=== PATIENT | male | born 1965 | race American Indian/Alaskan Native ===

== ENCOUNTER 2018-04-18 11:02 | Emergency (ER) | payer MEDICAID ==
[2018-04-18 11:21] VITALS: TEMP 98.3
[2018-04-18] MEDS ORDERED: Albuterol-Ipratrop 3 mg / 0.5 (3 ml) UD INH STA ×2 (11:38→12:21)
--- NOTE | 2018-04-18 11:38 | C.PDOC ---
History Of Present Illness 53 y/o male with hx asthma, +intubations, also dvt and pe, on xarelto, c/o difficulty breathing today. pt sts he was sorting clothes in a [facility] hot room and asthma worsened. pt ran out of albuterol mdi yesterday. also takes sprivia and advair. pt finished steroid taper on . pt given 2 nebs and solumedrol by ems and feels better than before. Time Seen by Provider: 04/18/18 11:26 Chief Complaint (Nursing): Shortness Of Breath History Per: Patient History/Exam Limitations: no limitations Onset/Duration Of Symptoms: Days Current Symptoms Are (Timing): Still Present Past Medical History Reviewed: Historical Data, Nursing Documentation, Vital Signs Vital Signs: Last Vital Signs Temp 98.3 F 04/18/18 11:20 Pulse 79 04/18/18 13:47 Resp 18 04/18/18 13:47 BP 122/78 04/18/18 13:47 Pulse Ox 98 04/18/18 19:08 - Medical History PMH: Asthma, COPD, Deep Vein Thrombosis, HTN, Hypercholesterolemia Surgical History: No Surg Hx Family History: States: No Known Family Hx - Social History Hx Alcohol Use: No Hx Substance Use: No Review Of Systems Constitutional: Negative for: Fever, Chills Cardiovascular: Negative for: Chest Pain, Palpitations Respiratory: Positive for: Shortness of Breath. Negative for: Cough Gastrointestinal: Negative for: Nausea, Vomiting Skin: Negative for: Rash Physical Exam - Physical Exam Appears: Non-toxic, No Acute Distress, Other (Speaking in full sentences) Skin: Warm, Dry, No Rash Head: Atraumatic, Normacephalic Eye(s): bilateral: Normal Inspection Oral Mucosa: Moist Neck: Normal ROM, Supple Cardiovascular: Rhythm Regular Respiratory: No Rales, No Rhonchi, Wheezing (bilateral), Other (speaks in full sentences) Gastrointestinal/Abdominal: Soft, No Tenderness, No Guarding, No Rebound Extremity: No Pedal Edema, Capillary Refill (<2 seconds) Neurological/Psych: Oriented x3, Normal Speech, Normal Cognition ED Course And Treatment O2 Sat by Pulse Oximetry: 98 (RA) Pulse Ox Interpretation: Normal Medical Decision Making Medical Decision Making: Progress: Patient requesting to go to [place], asked to stay in bed and was found wondering around ED. Patient is now seating in bed eating a sandwich and still has some wheezing. Neb treatment ordered 1332 pt still wheezing, alhough says he feels better. pt refuses admission, wants to leave. pt will leave ama. requesting inhaler, antibiotics and steroids. cxr neg for infiltrate. will not given antiblitics. pt received solumedrol in ed. will get rx for prednosone. Disposition Counseled Patient/Family Regarding: Studies Performed, Diagnosis, Need For Followup, Rx Given, Smoking Cessation - Disposition Referrals: [facility] at [facility] [Outside] Disposition: AGAINST MEDICAL ADVICE Disposition Time: 13:35 Condition: STABLE Prescriptions: Albuterol HFA [Ventolin HFA 90 mcg/actuation (8 g)] 2 puff IH Q6 #1 inhaler Prednisone [Deltasone] 20 mg PO BID #10 tablet Instructions: Asthma, Adult (DC), Avoiding Asthma Triggers, Peak Flow Meter Forms: [facility] [employer] (Upper Sorbian), General Discharge Instructions - Clinical Impression Clinical Impression: Asthma exacerbation - PA / PHOTOTYPESETTING EQUIPMENT MONITOR / Resident Statement MD/DO has reviewed & agrees with the documentation as recorded. - Scribe Statement The provider has reviewed the documentation as recorded by the Pawelibirvin Harrell All medical record entries made by the Omar were at my direction and personally dictated by me. I have reviewed the chart and agree that the record accurately reflects my personal performance of the history, physical exam, medical decision making, and the department course for this patient. I have also personally directed, reviewed, and agree with the discharge instructions and disposition.
[2018-04-18] MEDS ORDERED: Albuterol-Ipratrop 3 mg / 0.5 (3 ml) UD ONE ×2 (11:46→12:36)
--- NOTE | 2018-04-18 12:11 | RAD ---
HISTORY: cough and asthma COMPARISON: No prior. TECHNIQUE: Chest PA and lateral FINDINGS: LUNGS: No active pulmonary disease. PLEURA: No significant pleural effusion identified. No pneumothorax apparent. CARDIOVASCULAR: Normal. OSSEOUS STRUCTURES: Subacute versus old posterior left 9th rib fracture. Degenerative changes. VISUALIZED UPPER ABDOMEN: Normal. OTHER FINDINGS: None. IMPRESSION: Subacute versus old posterior left 9th rib fracture. No focal consolidation, pleural effusion or appreciable pneumothorax.
[2018-04-18 13:48] VITALS: BP 122/78; PULSE 79; RESP 18
[2018-04-18 19:08] VITALS: O2SAT 98
--- NOTE | 2018-04-21 21:58 | CARD ---
APPROVED REPORT EKG Measurement Heart [id number] <Conclusion> Normal sinus rhythm with sinus arrhythmia Normal ECG
== END 2018-04-18 13:47 | disposition left against medical advice (07) ==
LOC: C.ER 11:02
DX: J45.901 Unspecified asthma with (acute) exacerbation (principal); I10 Essential (primary) hypertension; E78.00 Pure hypercholesterolemia, unspecified; Z86.718 Personal history of other venous thrombosis and embolism; F17.210 Nicotine dependence, cigarettes, uncomplicated

== ENCOUNTER 2018-09-06 04:12 | Inpatient (IN) | payer MEDICAID ==
--- NOTE | 2018-09-06 04:16 | C.PDOC ---
History Of Present Illness 53 y/o male with PMHX of asthma and COPD presents to the ED via ambulance complaining of SOB for the past 3 days. Patient arrives AAOx3, speaking in 1-2 word phrases. As per EMS, patient received 1 duoneb, solu-medrol 125 mg, and 2 g m mag in the field, and CPAP was initiated. Patient reports current SOB feels similar to previous asthma/COPD exacerbation episodes. Patient has a history of prior intubations and hospitalizations for asthma. PMHx is also significant for DVT, for which he currently takes Xarelto. Patient reports taking his nebulizer treatments at home without relief, prompting him to come in this morning. Otherwise he denies any fevers, chills, night sweats, headache, dizziness, chest pain, or leg swelling/pain. Time Seen by Provider: 09/06/18 04:15 Chief Complaint (Nursing): Respiratory Distress History Per: Patient History/Exam Limitations: clinical condition (in respiratory distress) Onset/Duration Of Symptoms: Days (x3) Current Symptoms Are (Timing): Worse Associated Symptoms: Dyspnea Past Medical History Reviewed: Historical Data, Nursing Documentation, Vital Signs - Medical History PMH: Asthma, COPD, Deep Vein Thrombosis, HTN, Hypercholesterolemia Other Surgeries: Foot surgery Family History: States: No Known Family Hx - Social History Hx Tobacco Use: Yes Hx Alcohol Use: No Hx Substance Use: No Review Of Systems Constitutional: Negative for: Fever, Chills, Sweats Eyes: Negative for: Vision Change Cardiovascular: Negative for: Chest Pain Respiratory: Positive for: Cough, Shortness of Breath, Wheezing Gastrointestinal: Negative for: Nausea, Vomiting, Diarrhea, Melena, Hematochezia Neurological: Negative for: Weakness, Numbness, Headache, Dizziness Physical Exam - Physical Exam Appears: In Acute Distress (In acute respiratory distress), Other (Speaking in 1-2 word sentences) Skin: Warm, Dry Head: Normacephalic Eye(s): bilateral: PERRL, EOMI Oral Mucosa: Moist Neck: Trachea Midline, Supple, Other (No meningeal signs- negative kernig's and brudzinskis) Chest: Symmetrical Respiratory: Accessory Muscle Use, Wheezing (through all lung tony), Other (+ moderate respiratory distress) Gastrointestinal/Abdominal: Soft, No Tenderness, No Guarding, Other (Protuber ant, obese abdomen) Extremity: Bilateral: Normal Color And Temperature, Normal ROM Pulses: Left Dorsalis Pedis: Normal, Right Dorsalis Pedis: Normal Neurological/Psych: Oriented x3 ED Course And Treatment - Laboratory Results Result Diagrams: 09/06/18 04:41 09/06/18 04:41 O2 Sat by Pulse Oximetry: 97 (on BIPAP) Pulse Ox Interpretation: Normal Medical Decision Making Medical Decision Makin53 y/o M with pmhx of asthma, COPD, DVT (on xarelto), BIBA for SOB for 3 days. Pt arrives in respiratory distress, speaking in 1-2 word phrases. +Wheezing throughout all lung tony. Respiratory therapists at bedside. Initial Plan: ABG EKG CMP Pro-BNP CBC Chest x-ray Duoneb nebulizer x3 BIPAP EK, sinus rhythm, PVCs, no STEMI pc02 65, on bipap Pt in NAD on bipap, improved from previous Ginning Operator on-call, Dr. Bowen, notified of patient, accepted to ICU. 0518 appreciate consult w/ Dr. Clair melton: to admit to his service xray reviewed: largely unremarkable wheezing improved PT improved on BIPAP, Now speaking in more complete sentences, agreeable to plan CBC unremarkable Disposition - Disposition Disposition Time: 05:19 Condition: GOOD Forms: [facility] (Kyrgyz) - Clinical Impression Clinical Impression: Exacerbation of asthma - Scribe Statement The provider has reviewed the documentation as recorded by the Scribe (Flor Saha) Provider Attestation: All medical record entries made by the Scribe were at my direction and per sonally dictated by me. I have reviewed the chart and agree that the record accurately reflects my personal performance of the history, physical exam, medical decision making, and the department course for this patient. I have also personally directed, reviewed, and agree with the discharge instructions and disposition.
[2018-09-06] MEDS ORDERED: Albuterol-Ipratrop 3 mg / 0.5 (3 ml) UD ONE ×2 (04:20→04:25)
[2018-09-06] MEDS ORDERED: Albuterol-Ipratrop 3 mg / 0.5 (3 ml) UD INH PRN ×2 (04:32→05:54)
[2018-09-06 04:38] LABS: ABG ALLEN TEST POS; ARTERIAL BLOOD GAS HCO3 25.3 mmol/L (21-28); ARTERIAL BLOOD GAS O2 SAT 100.1 % (95-98); ARTERIAL BLOOD GAS PCO2 67 mm/Hg (35-45); ARTERIAL BLOOD GAS PH 7.25 (7.35-7.45); ARTERIAL BLOOD GAS PO2 526 mm/Hg (80-100); ARTERIAL BLOOD GAS TCO2 31.5 mmol/L (22-28)
[2018-09-06 04:55] LABS: BASO % 0.4 % (0.0-2.0); EOS # 0.3 K/uL (0.0-0.7); EOS % 2.4 % (0.0-4.0); HEMOGLOBIN 15.5 g/dL (12.0-18.0); LYMPH # 2.5 K/uL (1.0-4.3); MEAN CELL VOLUME 87.1 fL (80.0-94.0); MEAN CORPUSCULAR HEMOGLOBIN 29.1 pg (27.0-31.0); MEAN CORPUSCULAR HGB CONC 33.4 g/dL (33.0-37.0); MEAN PLATELET VOLUME 8.8 fL (7.2-11.7); MONO % 8.8 % (0.0-10.0); NEUT # 7.1 K/uL (1.8-7.0); NEUT % 65.4 % (50.0-75.0); NRBC % 0.1 % (0.0-2.0); RBC 5.32 Mil/uL (4.40-5.90); RED CELL DISTRIBUTION WIDTH 14.1 % (11.5-14.5); WHITE BLOOD COUNT 10.8 K/uL (4.8-10.8)
[2018-09-06 05:11] LABS: BLOOD UREA NITROGEN 13 mg/dL (9-20); GFR NON-AFRICAN AMERICAN > 60
[2018-09-06 05:24] LABS: ALB/GLOB RATIO 1.3 (1.0-2.1); ALBUMIN 4.4 g/dL (3.5-5.0); ALT/SGPT 26 U/L (21-72); AST/SGOT 57 U/L (17-59)
[2018-09-06] MEDS ORDERED: Albuterol 0.042% Inhal Sol (1.25 mg/3 mL) UD INH PRN (05:53)
[2018-09-06] MEDS ORDERED: MethylPREDNISolone 40 mg Vial IV SCH (06:00)
[2018-09-06] MEDS: Pantoprazole 40 mg Susp UD PO SCH (06:29)
--- NOTE | 2018-09-06 07:55 | CP.PCM.CON ---
History of Present Illness - History of Present Illness History of Present Illness: 53 M with h/o asthma, smoking, htn, hld, h/o dvt unprovoked b/l in 2007 on xeralto, came to ER for sob gradually worsening last 3 days, patient waking up from sleep often using nebulizer. Last night got worse couldn't breath felt he would . I ER and by EMT he received solumedrol oral predniesone, magnesium, nebs, and started on bipap then started to improve. On bipap still resp acidotic, but attack started to break and now able to talk in sentences. Denies work of home trigers being active, denies over acid reflux PMH as above PSH none Allergies PCN throat swells Meds reviewed Family history sibling have asthma, aunt and uncle from asthma Social recently shifted form [place], works as security personel, smokes 3 cig/day still, denies alcohol, illicit drugs Review of Systems - Review of Systems All systems: reviewed and no additional remarkable complaints except (HPI) Past Patient History - Past Social History Smoking Status: Light Smoker < 10 Cigarettes Daily Alcohol: None Home Situation {Lives}: With Family Domestic Violence: Negative - CARDIAC Hx Hypercholesterolemia: Yes Hx Hypertension: Yes - PULMONARY Hx Asthma: Yes Hx Chronic Obstructive Pulmonary Disease (COPD): Yes - PSYCHIATRIC Hx Substance Use: No - SURGICAL HISTORY Hx Surgeries: Yes Other/Comment: AKBAR FOOT - ANESTHESIA Hx Anesthesia: Yes Hx Anesthesia Reactions: No Meds Allergies/Adverse Reactions: Allergies Allergy/AdvReac Type Severity Reaction Status Date / Time mushroom Allergy Severe RASH Verified 09/06/18 04:31 Penicillins Allergy Severe SWELLING Verified 09/06/18 04:31 - Medications Medications: Current Medications Albuterol Sulfate (Albuterol 0.042% Inhal Janeth (1.25mg/3ml) Ud) 1.25 mg INH RQ2 PRN PRN Reason: Wheezing Albuterol/Ipratropium (Duoneb 3 Mg/0.5 Mg (3 Ml) Ud) 3 ml INH RQ6 PRN PRN Reason: Shortness of Breath Budesonide (Pulmicort Respules) 0.5 mg INH RQ12 OSMIN Doxycycline Hyclate (Doryx) 100 mg PO Q12H OSMIN; Protocol Lisinopril (Zestril) 10 mg PO DAILY OSMIN Methylprednisolone (Solu-Medrol) 40 mg IV Q8 [facility] Last Admin: 09/06/18 06:29 Dose: 40 mg Pantoprazole Sodium (Protonix Susp) 40 mg PO 0600 [facility] Last Admin: 09/06/18 06:29 Dose: 40 mg Rivaroxaban (Xarelto) 20 mg PO DAILY [facility] Rosuvastatin Calcium (Crestor) 5 mg PO DIN [facility] Trazodone HCl (Desyrel) 50 mg PO [facility] Physical Exam - Additional Findings Additional findings: * HEENT GUY * Neck supple * CVS regular, HR around 100/min * Chest diffuse, b/l prolonged exp wheezing * Abd soft, but use of abdominal muscles noticed * Ext 1+ b/l edema * SPECIMEN COLLECTOR awake oriented x3 no fnd * Skin normal turgor. Results - Vital Signs Recent Vital Signs: Last Vital Signs Temp 98.1 F 09/06/18 06:17 Pulse 93 H 09/06/18 06:35 Resp 16 09/06/18 06:17 BP 127/70 09/06/18 06:17 Pulse Ox 99 09/06/18 06:17 - Labs Result Diagrams: 09/06/18 04:41 09/06/18 04:41 Labs: Laboratory Results - last 24 hr 09/06/18 09/06/18 09/06/18 04:34 04:41 04:41 WBC 10.8 RBC 5.32 Hgb 15.5 Hct 46.3 MCV 87.1 MCH 29.1 MCHC 33.4 RDW 14.1 Plt Count 269 MPV 8.8 Neut % (Auto) 65.4 Lymph % (Auto) 23.0 King % (Auto) 8.8 Eos % (Auto) 2.4 Baso % (Auto) 0.4 Neut # (Auto) 7.1 H Lymph # (Auto) 2.5 King # (Auto) 1.0 H Eos # (Auto) 0.3 Baso # (Auto) 0.0 Puncture Site Lr pCO2 67 H pO2 526 H HCO3 25.3 ABG pH 7.25 L ABG Total CO2 31.5 H ABG O2 Saturation 100.1 H ABG Base Excess 0.4 Rashad Test Pos ABG Potassium 4.0 A-a O2 Difference 103.0 Respiratory Index 0.2 Sodium 141.0 142 Chloride 111.0 H 106 Glucose 137 H Lactate 0.7 Vent Mode Bipap FiO2 100.0 Inspiratory BiPAP 10 Expiratory BiPAP 5 Potassium 5.1 Carbon Dioxide 24 Anion Gap 17 BUN 13 Creatinine 0.9 Est GFR ( Amer) > 60 Est GFR (Non-Af Amer) > 60 Random Glucose 130 H Calcium 9.0 Total Bilirubin 1.0 AST 57 ALT 26 Alkaline Phosphatase 65 NT-Pro-B Natriuret Pep 46.0 Total Protein 7.9 Albumin 4.4 Globulin 3.5 Albumin/Globulin Ratio 1.3 Arterial Blood Potassium 4.0 Assessment & Plan - Assessment and Plan (Free Text) Assessment: * Status asthmaticus, resp adcidosis, improving * Tobacco abuse counselled * H/o HTN, HDL, * H/o DVT on xeralto * Plan: * Bipap, systemic steroid, doxycycline, nebs, inhaled steroid, watch in ICU till resp acidosis improves. * Home meds * Continue xeralto * Recommend PPI upon discharge for at least 6wk to see acid reflux as triger * Counselled about tobacco cessation. * See orders for detail.
[2018-09-06] MEDS ORDERED: Magnesium Sulfate 1 gm in D5W 1 GM/100 ML BAG IVPB ONE ×2 (08:21→10:04)
[2018-09-06] MEDS: Budesonide 0.5 mg/2 ml Inhal Susp UD INH SCH ×2 (08:30→20:15)
--- NOTE | 2018-09-06 09:35 | RAD ---
Date of service: 09/06/2018 HISTORY: sob COMPARISON: Comparison made with chest radiograph 04/18/2018 FINDINGS: LUNGS: Minor bibasilar atelectasis PLEURA: No significant pleural effusion identified, no pneumothorax apparent. CARDIOVASCULAR: No aortic atherosclerotic calcification present. Normal cardiac size. No pulmonary vascular congestion. OSSEOUS STRUCTURES: Suspect old healed fracture deformity left posterior 9th rib. Degenerative changes both shoulder girdles. VISUALIZED UPPER ABDOMEN: Normal. OTHER FINDINGS: None. IMPRESSION: Minor bibasilar atelectasis
--- NOTE | 2018-09-06 13:18 | CP.CCUPN ---
<Tc Kaufman - Last Filed: 09/06/18 14:04> CCU Subjective - Physician Review Subjective (Free Text): 09/06/18 13:16 PGY-1 Critical Care Progress Note for Dr. Steen Patient seen and examined at bedside this AM. No acute overnight events reported. Status asthmaticus, resp acidosis, clinically improving. 12 pt ROS otherwise unchanged. Critical Care Time Spent (in minutes): 35 CCU Objective - Vital Signs / Intake & Output Vital Signs (Last 4 hours): Vital Signs Pulse 09/06/18 11:25 84 Intake and Output (Last 8hrs): Intake & Output 09/05/18 09/06/18 09/06/18 22:59 06:59 14:59 Weight 258 lb - Physical Exam Head: Positive for: Atraumatic, Normocephalic Pupils: Positive for: PERRL Extroacular Muscles: Positive for: EOMI Conjunctiva: Positive for: Normal Mouth: Positive for: Moist Mucous Membranes Neck: Positive for: Normal Range of Motion Respiratory/Chest: Positive for: Good Air Exchange, Wheezes. Negative for: Respiratory Distress, Accessory Muscle Use, Rales, Retracting, Rhonchi Cardiovascular: Positive for: Normal S1, S2, Tachycardic Abdomen: Positive for: Normal Bowel Sounds. Negative for: Tenderness, Distention, Peritoneal Signs, Rebound, Guarding Upper Extremity: Positive for: Normal Inspection, NORMAL PULSES, Neurovascularly Intact, Capillary Refill < 2s Lower Extremity: Positive for: Normal Inspection, NORMAL PULSES, Neurovascularly Intact, Capillary Refill < 2 s. Negative for: Edema, CALF TENDERNESS Skin: Positive for: Warm, Dry, Normal Color Psychiatric: Positive for: Alert, Oriented x 3 - Medications Active Medications: Active Medications Generic Name Dose Route Start Last Admin Trade Name Freq PRN Reason Stop Dose Admin Albuterol Sulfate 1.25 mg 09/06/18 05:53 09/06/18 08:30 Albuterol 0.042% Inhal Janeth (1.25mg/3ml) Ud INH 1.25 mg RQ2 PRN Administration Wheezing Albuterol/Ipratropium 3 ml 09/06/18 14:00 Duoneb 3 Mg/0.5 Mg (3 Ml) Ud INH RQ6 [facility] Aspirin 81 mg 09/06/18 10:00 09/06/18 10:22 Aspirin Chewable PO 81 mg DAILY [facility] Administration Budesonide 0.5 mg 09/06/18 08:00 09/06/18 08:30 Pulmicort Respules INH 0.5 mg RQ12 [facility] Administration Doxycycline Hyclate 100 mg 09/06/18 06:00 09/06/18 10:22 Doryx PO 100 mg Q12H [facility] Administration Protocol Lisinopril 10 mg 09/06/18 10:00 09/06/18 10:23 Zestril PO Not Given DAILY [facility] Methylprednisolone 40 mg 09/06/18 12:30 Solu-Medrol IV Q6H [facility] Montelukast Sodium 10 mg 09/06/18 22:00 Singulair PO HS [facility] Pantoprazole Sodium 40 mg 09/06/18 06:00 09/06/18 06:29 Protonix Susp PO 40 mg 0600 [facility] Administration Rivaroxaban 20 mg 09/06/18 10:00 Xarelto PO DAILY [facility] Rosuvastatin Calcium 5 mg 09/06/18 06:00 Crestor PO DIN [facility] Trazodone HCl 50 mg 09/06/18 22:00 Desyrel PO HS [facility] - Patient Studies Lab Studies: Lab Studies 09/06/18 09/06/18 09/06/18 Range/Units 04:41 04:41 04:34 WBC 10.8 (4.8-10.8) K/uL RBC 5.32 (4.40-5.90) Mil/uL Hgb 15.5 (12.0-18.0) g/dL Hct 46.3 (35.0-51.0) % MCV 87.1 (80.0-94.0) fL MCH 29.1 (27.0-31.0) pg MCHC 33.4 (33.0-37.0) g/dL RDW 14.1 (11.5-14.5) % Plt Count 269 (130-400) K/uL MPV 8.8 (7.2-11.7) fL Neut % (Auto) 65.4 (50.0-75.0) % Lymph % (Auto) 23.0 (20.0-40.0) % [place] % (Auto) 8.8 (0.0-10.0) % Eos % (Auto) 2.4 (0.0-4.0) % Baso % (Auto) 0.4 (0.0-2.0) % Neut # (Auto) 7.1 H (1.8-7.0) K/uL Lymph # (Auto) 2.5 (1.0-4.3) K/uL [place] # (Auto) 1.0 H (0.0-0.8) K/uL Eos # (Auto) 0.3 (0.0-0.7) K/uL Baso # (Auto) 0.0 (0.0-0.2) K/uL Puncture Site Lr pCO2 67 H (35-45) mm/Hg pO2 526 H (80-100) mm/Hg HCO3 25.3 (21-28) mmol/L ABG pH 7.25 L (7.35-7.45) ABG Total CO2 31.5 H (22-28) mmol/L ABG O2 Saturation 100.1 H (95-98) % ABG Base Excess 0.4 (-2.0-3.0) mmol/L Rashad Test Pos ABG Potassium 4.0 (3.6-5.2) mmol/L A-a O2 Difference 103.0 mm/Hg Respiratory Index 0.2 Sodium 142 141.0 (132-148) mmol/l Chloride 106 111.0 H (98-107) mmol/L Glucose 137 H (75-110) mg/dl Lactate 0.7 (0.7-2.1) mmol/L Vent Mode Bipap FiO2 100.0 % Inspiratory BiPAP 10 Expiratory BiPAP 5 Potassium 5.1 (3.6-5.2) mmol/L Carbon Dioxide 24 (22-30) mmol/L Anion Gap 17 (10-20) BUN 13 (9-20) mg/dL Creatinine 0.9 (0.8-1.5) mg/dL Est GFR ( Amer) > 60 Est GFR (Non-Af Amer) > 60 Random Glucose 130 H (75-110) mg/dL Calcium 9.0 (8.6-10.4) mg/dl Total Bilirubin 1.0 (0.2-1.3) mg/dL AST 57 (17-59) U/L ALT 26 (21-72) U/L Alkaline Phosphatase 65 (38-126) U/L NT-Pro-B Natriuret Pep 46.0 (0-900) pg/mL Total Protein 7.9 (6.3-8.3) g/dL Albumin 4.4 (3.5-5.0) g/dL Globulin 3.5 (2.2-3.9) gm/dL Albumin/Globulin Ratio 1.3 (1.0-2.1) Arterial Blood Potassium 4.0 (3.6-5.2) mmol/L Laboratory Results - last 24 hr 09/06/18 09/06/18 09/06/18 04:34 04:41 04:41 WBC 10.8 RBC 5.32 Hgb 15.5 Hct 46.3 MCV 87.1 MCH 29.1 MCHC 33.4 RDW 14.1 Plt Count 269 MPV 8.8 Neut % (Auto) 65.4 Lymph % (Auto) 23.0 [place] % (Auto) 8.8 Eos % (Auto) 2.4 Baso % (Auto) 0.4 Neut # (Auto) 7.1 H Lymph # (Auto) 2.5 [place] # (Auto) 1.0 H Eos # (Auto) 0.3 Baso # (Auto) 0.0 Puncture Site Lr pCO2 67 H pO2 526 H HCO3 25.3 ABG pH 7.25 L ABG Total CO2 31.5 H ABG O2 Saturation 100.1 H ABG Base Excess 0.4 Rashad Test Pos ABG Potassium 4.0 A-a O2 Difference 103.0 Respiratory Index 0.2 Sodium 141.0 142 Chloride 111.0 H 106 Glucose 137 H Lactate 0.7 Vent Mode Bipap FiO2 100.0 Inspiratory BiPAP 10 Expiratory BiPAP 5 Potassium 5.1 Carbon Dioxide 24 Anion Gap 17 BUN 13 Creatinine 0.9 Est GFR ( Amer) > 60 Est GFR (Non-Af Amer) > 60 Random Glucose 130 H Calcium 9.0 Total Bilirubin 1.0 AST 57 ALT 26 Alkaline Phosphatase 65 NT-Pro-B Natriuret Pep 46.0 Total Protein 7.9 Albumin 4.4 Globulin 3.5 Albumin/Globulin Ratio 1.3 Arterial Blood Potassium 4.0 EKG/Cardiology Studies: Cardiology / EKG Studies 09/06/18 04:32 ELECTROCARDIOGRAM Stat Comment: Mode Of Transportation: Reason For Exam: sob Review of Systems - Review of Systems All systems: reviewed and no additional remarkable complaints except Review of Systems: as per HPI Critical Care Progress Note - Nutrition Nutrition: Nutrition Category Date Time Status Heart Healthy Diet [DIET] Diets 09/06/18 Breakfast Active Assessment/Plan - Assessment and Plan (Free Text) Assessment: 53 M with pmhx of asthma, tobacco use, HTN, HLD, hx of DVT unprovoked B/L in 2007 on xeralto, presenting with gradually worsening dyspnea x 3 days. On bipap, still resp acidotic, but clinically improving. Plan: Neuro: -patient alert and oriented x3 -no focal neurological deficits noted Pulm: -bipap, duonebs, inhaled steroids, watch in ICU until respiratory acidosis resolves -CXR (09/06): minor bibasilar atelectasis CV: -BP well controlled -ASA 81 daily -Lisinopril 10 daily -Crestor 5 mg Heme: -hemodynamically stable Renal: -BUN/Cr stable -electrolytes within normal limits GI: -HHD diet -protonix PPx, Diet, Disposition -xarelto -protonix -HHD diet -PT on board Case discussed with Dr. Enio Kaufman DO, PGY-1 <Farheen Steen M - Last Filed: 09/06/18 14:48> CCU Objective - Vital Signs / Intake & Output Vital Signs (Last 4 hours): Vital Signs Pulse Pulse 09/06/18 14:42 91 H 09/06/18 11:25 84 Intake and Output (Last 8hrs): Intake & Output 09/05/18 09/06/18 09/06/18 22:59 06:59 14:59 Weight 258 lb - Medications Active Medications: Active Medications Generic Name Dose Route Start Last Admin Trade Name Freq PRN Reason Stop Dose Admin Albuterol Sulfate 1.25 mg 09/06/18 05:53 09/06/18 08:30 Albuterol 0.042% Inhal Janeth (1.25mg/3ml) Ud INH 1.25 mg RQ2 PRN Administration Wheezing Albuterol/Ipratropium 3 ml 09/06/18 14:00 09/06/18 14:46 Duoneb 3 Mg/0.5 Mg (3 Ml) Ud INH 3 ml RQ6 [facility] Administration Aspirin 81 mg 09/06/18 10:00 09/06/18 10:22 Aspirin Chewable PO 81 mg DAILY [facility] Administration Budesonide 0.5 mg 09/06/18 08:00 09/06/18 08:30 Pulmicort Respules INH 0.5 mg RQ12 [facility] Administration Doxycycline Hyclate 100 mg 09/06/18 06:00 09/06/18 10:22 Doryx PO 100 mg Q12H [facility] Administration Protocol Moxifloxacin HCl 400 mg in 250 mls @ 167 mls/hr 09/06/18 14:00 09/06/18 14:35 Avelox Iv 400mg/250ml Ns IVPB 167 mls/hr Q24H [facility] Administration Protocol Lisinopril 10 mg 09/06/18 10:00 09/06/18 10:23 Zestril PO Not Given DAILY [facility] Methylprednisolone 40 mg 09/06/18 12:30 Solu-Medrol IV Q6H [facility] Montelukast Sodium 10 mg 09/06/18 22:00 Singulair PO HS [facility] Pantoprazole Sodium 40 mg 09/06/18 06:00 09/06/18 06:29 Protonix Susp PO 40 mg 0600 [facility] Administration Rivaroxaban 20 mg 09/06/18 10:00 Xarelto PO DAILY [facility] Rosuvastatin Calcium 5 mg 09/06/18 06:00 Crestor PO DIN [facility] Trazodone HCl 50 mg 09/06/18 22:00 Desyrel PO HS [facility] - Patient Studies Lab Studies: Lab Studies 09/06/18 09/06/18 09/06/18 Range/Units 04:41 04:41 04:34 WBC 10.8 (4.8-10.8) K/uL RBC 5.32 (4.40-5.90) Mil/uL Hgb 15.5 (12.0-18.0) g/dL Hct 46.3 (35.0-51.0) % MCV 87.1 (80.0-94.0) fL MCH 29.1 (27.0-31.0) pg MCHC 33.4 (33.0-37.0) g/dL RDW 14.1 (11.5-14.5) % Plt Count 269 (130-400) K/uL MPV 8.8 (7.2-11.7) fL Neut % (Auto) 65.4 (50.0-75.0) % Lymph % (Auto) 23.0 (20.0-40.0) % [place] % (Auto) 8.8 (0.0-10.0) % Eos % (Auto) 2.4 (0.0-4.0) % Baso % (Auto) 0.4 (0.0-2.0) % Neut # (Auto) 7.1 H (1.8-7.0) K/uL Lymph # (Auto) 2.5 (1.0-4.3) K/uL [place] # (Auto) 1.0 H (0.0-0.8) K/uL Eos # (Auto) 0.3 (0.0-0.7) K/uL Baso # (Auto) 0.0 (0.0-0.2) K/uL Puncture Site Lr pCO2 67 H (35-45) mm/Hg pO2 526 H (80-100) mm/Hg HCO3 25.3 (21-28) mmol/L ABG pH 7.25 L (7.35-7.45) ABG Total CO2 31.5 H (22-28) mmol/L ABG O2 Saturation 100.1 H (95-98) % ABG Base Excess 0.4 (-2.0-3.0) mmol/L Rashad Test Pos ABG Potassium 4.0 (3.6-5.2) mmol/L A-a O2 Difference 103.0 mm/Hg Respiratory Index 0.2 Sodium 142 141.0 (132-148) mmol/l Chloride 106 111.0 H (98-107) mmol/L Glucose 137 H (75-110) mg/dl Lactate 0.7 (0.7-2.1) mmol/L Vent Mode Bipap FiO2 100.0 % Inspiratory BiPAP 10 Expiratory BiPAP 5 Potassium 5.1 (3.6-5.2) mmol/L Carbon Dioxide 24 (22-30) mmol/L Anion Gap 17 (10-20) BUN 13 (9-20) mg/dL Creatinine 0.9 (0.8-1.5) mg/dL Est GFR ( Amer) > 60 Est GFR (Non-Af Amer) > 60 Random Glucose 130 H (75-110) mg/dL Calcium 9.0 (8.6-10.4) mg/dl Total Bilirubin 1.0 (0.2-1.3) mg/dL AST 57 (17-59) U/L ALT 26 (21-72) U/L Alkaline Phosphatase 65 (38-126) U/L NT-Pro-B Natriuret Pep 46.0 (0-900) pg/mL Total Protein 7.9 (6.3-8.3) g/dL Albumin 4.4 (3.5-5.0) g/dL Globulin 3.5 (2.2-3.9) gm/dL Albumin/Globulin Ratio 1.3 (1.0-2.1) Arterial Blood Potassium 4.0 (3.6-5.2) mmol/L Laboratory Results - last 24 hr 09/06/18 09/06/18 09/06/18 04:34 04:41 04:41 WBC 10.8 RBC 5.32 Hgb 15.5 Hct 46.3 MCV 87.1 MCH 29.1 MCHC 33.4 RDW 14.1 Plt Count 269 MPV 8.8 Neut % (Auto) 65.4 Lymph % (Auto) 23.0 [place] % (Auto) 8.8 Eos % (Auto) 2.4 Baso % (Auto) 0.4 Neut # (Auto) 7.1 H Lymph # (Auto) 2.5 [place] # (Auto) 1.0 H Eos # (Auto) 0.3 Baso # (Auto) 0.0 Puncture Site Lr pCO2 67 H pO2 526 H HCO3 25.3 ABG pH 7.25 L ABG Total CO2 31.5 H ABG O2 Saturation 100.1 H ABG Base Excess 0.4 Rashad Test Pos ABG Potassium 4.0 A-a O2 Difference 103.0 Respiratory Index 0.2 Sodium 141.0 142 Chloride 111.0 H 106 Glucose 137 H Lactate 0.7 Vent Mode Bipap FiO2 100.0 Inspiratory BiPAP 10 Expiratory BiPAP 5 Potassium 5.1 Carbon Dioxide 24 Anion Gap 17 BUN 13 Creatinine 0.9 Est GFR ( Amer) > 60 Est GFR (Non-Af Amer) > 60 Random Glucose 130 H Calcium 9.0 Total Bilirubin 1.0 AST 57 ALT 26 Alkaline Phosphatase 65 NT-Pro-B Natriuret Pep 46.0 Total Protein 7.9 Albumin 4.4 Globulin 3.5 Albumin/Globulin Ratio 1.3 Arterial Blood Potassium 4.0 EKG/Cardiology Studies: Cardiology / EKG Studies 09/06/18 04:32 ELECTROCARDIOGRAM Stat Comment: Mode Of Transportation: Reason For Exam: sob Critical Care Progress Note - Nutrition Nutrition: Nutrition Category Date Time Status Heart Healthy Diet [DIET] Diets 09/06/18 Breakfast Active Assessment/Plan - Assessment and Plan (Free Text) Plan: Patient seen and examined at bedside. Patient still wheezing -continue combination of steroids bronchodilators and bi-pap -continue all home medicatoins -continue NOAC for DVT -above resident documents my clinical management and physical exam - Date & Time Date: 09/06/18 Time: 14:48
[2018-09-06] MEDS: MethylPREDNISolone 40 mg Vial IV SCH ×2 (13:20→18:41)
[2018-09-06] MEDS: Moxifloxacin IV 400mg/250ml NS 400 MG/250 ML BAG IVPB SCH (14:35)
[2018-09-06] MEDS: Albuterol-Ipratrop 3 mg / 0.5 (3 ml) UD INH SCH ×2 (14:46→20:15)
--- NOTE | 2018-09-06 19:09 | CP.PCM.HP ---
Past Patient History - Past Medical History & Family History Past Medical History?: Yes - Past Social History Smoking Status: Light Smoker < 10 Cigarettes Daily - CARDIAC Hx Hypercholesterolemia: Yes Hx Hypertension: Yes - PULMONARY Hx Chronic Obstructive Pulmonary Disease (COPD): Yes - MUSCULOSKELETAL/RHEUMATOLOGICAL Hx Falls: No - PSYCHIATRIC Hx Substance Use: No - SURGICAL HISTORY Hx Surgeries: Yes Other/Comment: AKBAR FOOT - ANESTHESIA Hx Anesthesia: Yes Hx Anesthesia Reactions: No Meds Allergies/Adverse Reactions: Allergies Allergy/AdvReac Type Severity Reaction Status Date / Time mushroom Allergy Severe RASH Verified 09/06/18 04:31 Penicillins Allergy Severe SWELLING Verified 09/06/18 04:31 Physical Exam - Constitutional Appears: Well - Head Exam Head Exam: ATRAUMATIC, NORMAL INSPECTION, NORMOCEPHALIC - Eye Exam Eye Exam: EOMI, Normal appearance, PERRL Pupil Exam: NORMAL ACCOMODATION, PERRL - ENT Exam ENT Exam: Mucous Membranes Moist, Normal Exam - Neck Exam Neck exam: Positive for: Normal Inspection - Respiratory Exam Respiratory Exam: Decreased Breath Sounds - Cardiovascular Exam Cardiovascular Exam: REGULAR RHYTHM, +S1, +S2 - GI/Abdominal Exam GI & Abdominal Exam: Diminished Bowel Sounds, Soft - Rectal Exam Rectal Exam: Deferred Results - Vital Signs Recent Vital Signs: Last Vital Signs Temp 97.9 F 09/06/18 16:00 Pulse 80 09/06/18 18:10 Resp 20 09/06/18 18:10 BP 122/64 09/06/18 17:43 Pulse Ox 97 09/06/18 14:55 - Labs Result Diagrams: 09/06/18 04:41 09/06/18 04:41 Labs: Laboratory Results - last 24 hr 09/06/18 09/06/18 09/06/18 04:34 04:41 04:41 WBC 10.8 RBC 5.32 Hgb 15.5 Hct 46.3 MCV 87.1 MCH 29.1 MCHC 33.4 RDW 14.1 Plt Count 269 MPV 8.8 Neut % (Auto) 65.4 Lymph % (Auto) 23.0 [place] % (Auto) 8.8 Eos % (Auto) 2.4 Baso % (Auto) 0.4 Neut # (Auto) 7.1 H Lymph # (Auto) 2.5 [place] # (Auto) 1.0 H Eos # (Auto) 0.3 Baso # (Auto) 0.0 Puncture Site Lr pCO2 67 H pO2 526 H HCO3 25.3 ABG pH 7.25 L ABG Total CO2 31.5 H ABG O2 Saturation 100.1 H ABG Base Excess 0.4 Rashad Test Pos ABG Potassium 4.0 A-a O2 Difference 103.0 Respiratory Index 0.2 Sodium 141.0 142 Chloride 111.0 H 106 Glucose 137 H Lactate 0.7 Vent Mode Bipap FiO2 100.0 Inspiratory BiPAP 10 Expiratory BiPAP 5 Potassium 5.1 Carbon Dioxide 24 Anion Gap 17 BUN 13 Creatinine 0.9 Est GFR ( Amer) > 60 Est GFR (Non-Af Amer) > 60 Random Glucose 130 H Calcium 9.0 Total Bilirubin 1.0 AST 57 ALT 26 Alkaline Phosphatase 65 NT-Pro-B Natriuret Pep 46.0 Total Protein 7.9 Albumin 4.4 Globulin 3.5 Albumin/Globulin Ratio 1.3 Arterial Blood Potassium 4.0
--- NOTE | 2018-09-06 19:22 | CP.PCM.CON ---
History of Present Illness - History of Present Illness History of Present Illness: Reason for consultation: shortness of breath/asthma exacerbation 53-year-old male with history of smoking, asthma, history of DVT on Xarelto, presented to emergency room with worsening shortness of breath for the past 3 days and has been using rescue inhaler and nebulizer more frequently without response. Also complaining of cough. Patient because of severity of symptoms was placed on BiPAP and admitted to intensive care unit with hypercapnia. Patient states his breathing is slightly better. no history of intubation in the past. PMH as above PSH none Allergies PCN throat swells Meds reviewed Family history sibling have asthma, aunt and uncle from asthma Social recently shifted form [place], works as security personel, smokes 3 cig/day still, denies alcohol, illicit drugs Review of Systems - Review of Systems All systems: reviewed and no additional remarkable complaints except (shortness of breath) Past Patient History - Past Medical History & Family History Past Medical History?: Yes - Past Social History Smoking Status: Light Smoker < 10 Cigarettes Daily - CARDIAC Hx Hypercholesterolemia: Yes Hx Hypertension: Yes - PULMONARY Hx Chronic Obstructive Pulmonary Disease (COPD): Yes - MUSCULOSKELETAL/RHEUMATOLOGICAL Hx Falls: No - PSYCHIATRIC Hx Substance Use: No - SURGICAL HISTORY Hx Surgeries: Yes Other/Comment: AKBAR FOOT - ANESTHESIA Hx Anesthesia: Yes Hx Anesthesia Reactions: No Meds Allergies/Adverse Reactions: Allergies Allergy/AdvReac Type Severity Reaction Status Date / Time mushroom Allergy Severe RASH Verified 09/06/18 04:31 Penicillins Allergy Severe SWELLING Verified 09/06/18 04:31 - Medications Medications: Current Medications Albuterol Sulfate (Albuterol 0.042% Inhal Janeth (1.25mg/3ml) Ud) 1.25 mg INH RQ2 PRN PRN Reason: Wheezing Last Admin: 09/06/18 08:30 Dose: 1.25 mg Albuterol/Ipratropium (Duoneb 3 Mg/0.5 Mg (3 Ml) Ud) 3 ml INH RQ6 [facility] Last Admin: 09/06/18 14:46 Dose: 3 ml Aspirin (Aspirin Chewable) 81 mg PO DAILY [facility] Last Admin: 09/06/18 10:22 Dose: 81 mg Budesonide (Pulmicort Respules) 0.5 mg INH RQ12 [facility] Last Admin: 09/06/18 08:30 Dose: 0.5 mg Doxycycline Hyclate (Doryx) 100 mg PO Q12H [facility]; Protocol Last Admin: 09/06/18 18:40 Dose: 100 mg Moxifloxacin HCl (Avelox Iv 400mg/250ml Ns) 400 mg in 250 mls @ 167 mls/hr IVPB Q24H [facility]; Protocol Last Admin: 09/06/18 14:35 Dose: 167 mls/hr Lisinopril (Zestril) 10 mg PO DAILY [facility] Last Admin: 09/06/18 10:23 Dose: Not Given Methylprednisolone (Solu-Medrol) 40 mg IV Q6H [facility] Last Admin: 09/06/18 18:41 Dose: 40 mg Montelukast Sodium (Singulair) 10 mg PO HS [facility] Pantoprazole Sodium (Protonix Susp) 40 mg PO 0600 [facility] Last Admin: 09/06/18 06:29 Dose: 40 mg Rivaroxaban (Xarelto) 20 mg PO DAILY [facility] Last Admin: 09/06/18 10:40 Dose: 20 mg Rosuvastatin Calcium (Crestor) 5 mg PO DIN [facility] Trazodone HCl (Desyrel) 50 mg PO HS [facility] Physical Exam - Head Exam Head Exam: ATRAUMATIC, NORMOCEPHALIC - ENT Exam ENT Exam: Mucous Membranes Moist - Neck Exam Neck exam: Positive for: Normal Inspection - Respiratory Exam Respiratory Exam: Rhonchi, Wheezes - Cardiovascular Exam Cardiovascular Exam: REGULAR RHYTHM - GI/Abdominal Exam GI & Abdominal Exam: Normal Bowel Sounds, Soft - Extremities Exam Extremities exam: Positive for: normal inspection - Neurological Exam Neurological exam: Alert, Oriented x3 Results - Vital Signs Recent Vital Signs: Last Vital Signs Temp 97.9 F 09/06/18 16:00 Pulse 80 09/06/18 18:10 Resp 20 09/06/18 18:10 BP 122/64 09/06/18 17:43 Pulse Ox 97 09/06/18 14:55 - Labs Result Diagrams: 09/06/18 04:41 09/06/18 04:41 Labs: Laboratory Results - last 24 hr 09/06/18 09/06/18 09/06/18 04:34 04:41 04:41 WBC 10.8 RBC 5.32 Hgb 15.5 Hct 46.3 MCV 87.1 MCH 29.1 MCHC 33.4 RDW 14.1 Plt Count 269 MPV 8.8 Neut % (Auto) 65.4 Lymph % (Auto) 23.0 [place] % (Auto) 8.8 Eos % (Auto) 2.4 Baso % (Auto) 0.4 Neut # (Auto) 7.1 H Lymph # (Auto) 2.5 [place] # (Auto) 1.0 H Eos # (Auto) 0.3 Baso # (Auto) 0.0 Puncture Site Lr pCO2 67 H pO2 526 H HCO3 25.3 ABG pH 7.25 L ABG Total CO2 31.5 H ABG O2 Saturation 100.1 H ABG Base Excess 0.4 Rashad Test Pos ABG Potassium 4.0 A-a O2 Difference 103.0 Respiratory Index 0.2 Sodium 141.0 142 Chloride 111.0 H 106 Glucose 137 H Lactate 0.7 Vent Mode Bipap FiO2 100.0 Inspiratory BiPAP 10 Expiratory BiPAP 5 Potassium 5.1 Carbon Dioxide 24 Anion Gap 17 BUN 13 Creatinine 0.9 Est GFR ( Amer) > 60 Est GFR (Non-Af Amer) > 60 Random Glucose 130 H Calcium 9.0 Total Bilirubin 1.0 AST 57 ALT 26 Alkaline Phosphatase 65 NT-Pro-B Natriuret Pep 46.0 Total Protein 7.9 Albumin 4.4 Globulin 3.5 Albumin/Globulin Ratio 1.3 Arterial Blood Potassium 4.0 Assessment & Plan (1) Asthma-COPD overlap syndrome Assessment and Plan: patient with long history of smoking most likely has bronchitis/emphysema patient retaining pCO2 Continue BiPAP Followup ABG Nebulizer treatment IV steroids IV antibiotics Singulair Protonix Continue xarelto Status: Acute
[2018-09-07] MEDS: MethylPREDNISolone 40 mg Vial IV SCH ×4 (00:15→21:02)
[2018-09-07] MEDS: Albuterol-Ipratrop 3 mg / 0.5 (3 ml) UD INH SCH ×4 (02:17→21:10)
[2018-09-07] MEDS: Pantoprazole 40 mg Susp UD PO SCH (06:03)
[2018-09-07 06:34] LABS: BASO % 0.2 % (0.0-2.0); HEMOGLOBIN 13.9 g/dL (12.0-18.0); LYMPH # 0.8 K/uL (1.0-4.3); LYMPH % 4.3 % (20.0-40.0); MEAN CELL VOLUME 87.3 fL (80.0-94.0); MEAN CORPUSCULAR HEMOGLOBIN 28.8 pg (27.0-31.0); MEAN PLATELET VOLUME 9.3 fL (7.2-11.7); MONO # 0.7 K/uL (0.0-0.8); MONO % 3.7 % (0.0-10.0); NEUT # 17.6 K/uL (1.8-7.0); NEUT % 91.8 % (50.0-75.0); PLATELET COUNT 237 K/uL (130-400); RBC 4.83 Mil/uL (4.40-5.90); RED CELL DISTRIBUTION WIDTH 14.4 % (11.5-14.5); WHITE BLOOD COUNT 19.2 K/uL (4.8-10.8)
[2018-09-07 06:34] LABS: ALB/GLOB RATIO 1.4 (1.0-2.1); ALBUMIN 3.9 g/dL (3.5-5.0); ALT/SGPT 26 U/L (21-72); AST/SGOT 37 U/L (17-59); BLOOD UREA NITROGEN 20 mg/dL (9-20); CALCIUM 9.3 mg/dl (8.6-10.4); GFR NON-AFRICAN AMERICAN > 60
[2018-09-07] MEDS: Budesonide 0.5 mg/2 ml Inhal Susp UD INH SCH ×2 (08:43→21:09)
[2018-09-07] MEDS ORDERED: MethylPREDNISolone 40 mg Vial IV SCH (09:30)
[2018-09-07 10:32] LABS: BANDS 6 % (0-2); LYMPHOCYTE 4 % (20-40); MONOCYTE 3 % (0-10); NEUTROPHIL 87 % (50-75); PLATELET ESTIMATE NORMAL (NORMAL); TOTAL CELLS COUNTED 100
--- NOTE | 2018-09-07 10:48 | CP.PCM.PN ---
Subjective - Date & Time of Evaluation Date of Evaluation: 09/07/18 Time of Evaluation: 10:46 - Subjective Subjective: Patient feeling better, no wheezing, Objective - Vital Signs/Intake and Output Vital Signs (last 24 hours): Temp Pulse Resp BP Pulse Ox 97.3 F L 72 23 111/66 98 09/06/18 20:00 09/07/18 09:11 09/07/18 07:00 09/07/18 06:43 09/07/18 07:00 Intake and Output: 09/07/18 09/07/18 06:59 18:59 Intake Total 1140 0 Output Total 925 0 Balance 215 0 - Medications Medications: Current Medications Albuterol Sulfate (Albuterol 0.042% Inhal Janeth (1.25mg/3ml) Ud) 1.25 mg INH RQ2 PRN PRN Reason: Wheezing Last Admin: 09/06/18 08:30 Dose: 1.25 mg Albuterol/Ipratropium (Duoneb 3 Mg/0.5 Mg (3 Ml) Ud) 3 ml INH RQ6 [facility] Last Admin: 09/07/18 08:43 Dose: 3 ml Aspirin (Aspirin Chewable) 81 mg PO DAILY [facility] Last Admin: 09/06/18 10:22 Dose: 81 mg Budesonide (Pulmicort Respules) 0.5 mg INH RQ12 [facility] Last Admin: 09/07/18 08:43 Dose: 0.5 mg Doxycycline Hyclate (Doryx) 100 mg PO Q12H [facility]; Protocol Last Admin: 09/07/18 06:02 Dose: 100 mg Moxifloxacin HCl (Avelox Iv 400mg/250ml Ns) 400 mg in 250 mls @ 167 mls/hr IVPB Q24H [facility]; Protocol Last Admin: 09/06/18 14:35 Dose: 167 mls/hr Lisinopril (Zestril) 10 mg PO DAILY [facility] Last Admin: 09/06/18 10:23 Dose: Not Given Methylprednisolone (Solu-Medrol) 40 mg IV Q8H [facility] Montelukast Sodium (Singulair) 10 mg PO HS [facility] Last Admin: 09/06/18 22:59 Dose: 10 mg Pantoprazole Sodium (Protonix Susp) 40 mg PO 0600 [facility] Last Admin: 09/07/18 06:03 Dose: 40 mg Rivaroxaban (Xarelto) 20 mg PO DAILY [facility] Last Admin: 09/06/18 10:40 Dose: 20 mg Rosuvastatin Calcium (Crestor) 5 mg PO DIN [facility] Trazodone HCl (Desyrel) 50 mg PO HS [facility] Last Admin: 09/06/18 22:59 Dose: 50 mg - Labs Labs: 09/07/18 06:23 09/07/18 06:07 - Head Exam Head Exam: ATRAUMATIC, NORMAL INSPECTION, NORMOCEPHALIC - Eye Exam Pupil Exam: NORMAL ACCOMODATION - ENT Exam ENT Exam: Mucous Membranes Moist - Respiratory Exam Respiratory Exam: NORMAL BREATHING PATTERN - Cardiovascular Exam Cardiovascular Exam: REGULAR RHYTHM, +S1, +S2 - GI/Abdominal Exam GI & Abdominal Exam: Normal Bowel Sounds - Neurological Exam Neurological Exam: Alert, Awake, CN II-XII Intact, Oriented x3 Assessment and Plan - Assessment and Plan (Free Text) Assessment: 53 M with pmhx of asthma, tobacco use, HTN, HLD, hx of DVT unprovoked B/L in 2007 on xeralto, presenting with gradually worsening dyspnea x 3 days. On bipap, still resp acidotic, but clinically improving. asthma exacerbation: resolved no wheezing today, contnue bronchodilators an bi- pap PRN -PT/OT -continue all other medications including NOAC -oob to chair -patient remains hemodynamically stable
[2018-09-07] MEDS: Moxifloxacin IV 400mg/250ml NS 400 MG/250 ML BAG IVPB SCH (14:22)
[2018-09-07] MEDS: Promethazine 12.5 mg/10 ml Syrup PO PRN (18:36)
--- NOTE | 2018-09-07 19:28 | CP.PCM.PN ---
Subjective - Date & Time of Evaluation Date of Evaluation: 09/07/18 Time of Evaluation: 13:45 - Subjective Subjective: clinically same Objective - Vital Signs/Intake and Output Vital Signs (last 24 hours): Temp Pulse Resp BP Pulse Ox 97.3 F L 78 20 129/108 H 98 09/06/18 20:00 09/07/18 10:51 09/07/18 07:44 09/07/18 16:44 09/07/18 10:51 Intake and Output: 09/07/18 09/08/18 18:59 06:59 Intake Total 500 Output Total 0 Balance 500 - Medications Medications: Current Medications Albuterol Sulfate (Albuterol 0.042% Inhal Janeth (1.25mg/3ml) Ud) 1.25 mg INH RQ2 PRN PRN Reason: Wheezing Last Admin: 09/06/18 08:30 Dose: 1.25 mg Albuterol/Ipratropium (Duoneb 3 Mg/0.5 Mg (3 Ml) Ud) 3 ml INH RQ6 [facility] Last Admin: 09/07/18 14:04 Dose: Not Given Aspirin (Aspirin Chewable) 81 mg PO DAILY [facility] Last Admin: 09/07/18 14:22 Dose: 81 mg Budesonide (Pulmicort Respules) 0.5 mg INH RQ12 [facility] Last Admin: 09/07/18 08:43 Dose: 0.5 mg Doxycycline Hyclate (Doryx) 100 mg PO Q12H [facility]; Protocol Last Admin: 09/07/18 18:36 Dose: 100 mg Moxifloxacin HCl (Avelox Iv 400mg/250ml Ns) 400 mg in 250 mls @ 167 mls/hr IVPB Q24H [facility]; Protocol Last Admin: 09/07/18 14:22 Dose: 167 mls/hr Lisinopril (Zestril) 10 mg PO DAILY [facility] Last Admin: 09/07/18 14:22 Dose: 10 mg Methylprednisolone (Solu-Medrol) 40 mg IV Q8H [facility] Last Admin: 09/07/18 14:22 Dose: 40 mg Montelukast Sodium (Singulair) 10 mg PO HS [facility] Last Admin: 09/06/18 22:59 Dose: 10 mg Pantoprazole Sodium (Protonix Susp) 40 mg PO 0600 [facility] Last Admin: 09/07/18 06:03 Dose: 40 mg Promethazine HCl (Phenergan Syrup) 12.5 mg PO Q6 PRN PRN Reason: Cough Last Admin: 09/07/18 18:36 Dose: 12.5 mg Rivaroxaban (Xarelto) 20 mg PO DAILY [facility] Last Admin: 09/07/18 14:22 Dose: 20 mg Rosuvastatin Calcium (Crestor) 5 mg PO DIN [facility] Trazodone HCl (Desyrel) 50 mg PO HS [facility] Last Admin: 09/06/18 22:59 Dose: 50 mg - Labs Labs: 09/07/18 06:23 09/07/18 06:07 - Constitutional Appears: Well - Head Exam Head Exam: ATRAUMATIC, NORMAL INSPECTION, NORMOCEPHALIC - Eye Exam Eye Exam: EOMI, Normal appearance, PERRL Pupil Exam: NORMAL ACCOMODATION, PERRL - ENT Exam ENT Exam: Mucous Membranes Moist, Normal Exam - Neck Exam Neck Exam: Full ROM, Normal Inspection. absent: Lymphadenopathy - Respiratory Exam Respiratory Exam: Decreased Breath Sounds - Cardiovascular Exam Cardiovascular Exam: REGULAR RHYTHM, +S1, +S2 - GI/Abdominal Exam GI & Abdominal Exam: Soft, Diminished Bowel Sounds - Rectal Exam Rectal Exam: Deferred
--- NOTE | 2018-09-07 19:46 | CP.PCM.PN ---
Subjective - Date & Time of Evaluation Date of Evaluation: 09/07/18 - Subjective Subjective: Patient seen and examined Breathing much better Patient is off BiPAP Continue IV steroids Continue nebulizer treatment Peak flow q. shift Patient requesting to go home Objective - Vital Signs/Intake and Output Vital Signs (last 24 hours): Temp Pulse Resp BP Pulse Ox 97.3 F L 78 20 129/108 H 98 09/06/18 20:00 09/07/18 10:51 09/07/18 07:44 09/07/18 16:44 09/07/18 10:51 Intake and Output: 09/07/18 09/08/18 18:59 06:59 Intake Total 500 Output Total 0 Balance 500 - Medications Medications: Current Medications Albuterol Sulfate (Albuterol 0.042% Inhal Janeth (1.25mg/3ml) Ud) 1.25 mg INH RQ2 PRN PRN Reason: Wheezing Last Admin: 09/06/18 08:30 Dose: 1.25 mg Albuterol/Ipratropium (Duoneb 3 Mg/0.5 Mg (3 Ml) Ud) 3 ml INH RQ6 [facility] Last Admin: 09/07/18 14:04 Dose: Not Given Aspirin (Aspirin Chewable) 81 mg PO DAILY [facility] Last Admin: 09/07/18 14:22 Dose: 81 mg Budesonide (Pulmicort Respules) 0.5 mg INH RQ12 [facility] Last Admin: 09/07/18 08:43 Dose: 0.5 mg Doxycycline Hyclate (Doryx) 100 mg PO Q12H [facility]; Protocol Last Admin: 09/07/18 18:36 Dose: 100 mg Moxifloxacin HCl (Avelox Iv 400mg/250ml Ns) 400 mg in 250 mls @ 167 mls/hr IVPB Q24H [facility]; Protocol Last Admin: 09/07/18 14:22 Dose: 167 mls/hr Lisinopril (Zestril) 10 mg PO DAILY [facility] Last Admin: 09/07/18 14:22 Dose: 10 mg Methylprednisolone (Solu-Medrol) 40 mg IV Q8H [facility] Last Admin: 09/07/18 14:22 Dose: 40 mg Montelukast Sodium (Singulair) 10 mg PO HS [facility] Last Admin: 09/06/18 22:59 Dose: 10 mg Pantoprazole Sodium (Protonix Susp) 40 mg PO 0600 [facility] Last Admin: 09/07/18 06:03 Dose: 40 mg Promethazine HCl (Phenergan Syrup) 12.5 mg PO Q6 PRN PRN Reason: Cough Last Admin: 09/07/18 18:36 Dose: 12.5 mg Rivaroxaban (Xarelto) 20 mg PO DAILY [facility] Last Admin: 09/07/18 14:22 Dose: 20 mg Rosuvastatin Calcium (Crestor) 5 mg PO DIN [facility] Trazodone HCl (Desyrel) 50 mg PO HS [facility] Last Admin: 09/06/18 22:59 Dose: 50 mg - Labs Labs: 09/07/18 06:23 09/07/18 06:07 Assessment and Plan (1) Asthma-COPD overlap syndrome Status: Acute
--- NOTE | 2018-09-07 20:04 | CARD ---
APPROVED REPORT Date of service: 09/06/2018 EKG Measurement Heart [id number] <Conclusion> Sinus tachycardia with frequent premature ventricular complexes Otherwise normal ECG
[2018-09-08] MEDS: Promethazine 12.5 mg/10 ml Syrup PO PRN ×3 (01:45→19:03)
[2018-09-08] MEDS: Albuterol-Ipratrop 3 mg / 0.5 (3 ml) UD INH SCH ×4 (02:14→20:46)
[2018-09-08] MEDS: Pantoprazole 40 mg Susp UD PO SCH (05:38)
[2018-09-08] MEDS: MethylPREDNISolone 40 mg Vial IV SCH ×3 (05:39→21:12)
[2018-09-08 06:35] LABS: BASO # 0.1 K/uL (0.0-0.2); BASO % 0.6 % (0.0-2.0); EOS % 0.1 % (0.0-4.0); HEMOGLOBIN 13.2 g/dL (12.0-18.0); LYMPH # 0.7 K/uL (1.0-4.3); LYMPH % 3.1 % (20.0-40.0); MEAN CELL VOLUME 86.7 fL (80.0-94.0); MEAN CORPUSCULAR HEMOGLOBIN 28.5 pg (27.0-31.0); MEAN CORPUSCULAR HGB CONC 32.8 g/dL (33.0-37.0); MEAN PLATELET VOLUME 9.4 fL (7.2-11.7); MONO # 0.7 K/uL (0.0-0.8); MONO % 3.2 % (0.0-10.0); NEUT # 20.8 K/uL (1.8-7.0); PLATELET COUNT 222 K/uL (130-400); RBC 4.62 Mil/uL (4.40-5.90); RED CELL DISTRIBUTION WIDTH 14.3 % (11.5-14.5); WHITE BLOOD COUNT 22.3 K/uL (4.8-10.8)
[2018-09-08 06:48] LABS: ALB/GLOB RATIO 1.2 (1.0-2.1); ALBUMIN 3.3 g/dL (3.5-5.0); ALT/SGPT 23 U/L (21-72); AST/SGOT 21 U/L (17-59); BLOOD UREA NITROGEN 25 mg/dL (9-20); CALCIUM 8.9 mg/dl (8.6-10.4); GFR NON-AFRICAN AMERICAN > 60
[2018-09-08] MEDS: Budesonide 0.5 mg/2 ml Inhal Susp UD INH SCH ×2 (08:28→20:46)
[2018-09-08 09:32] LABS: BANDS 2 % (0-2); LYMPHOCYTE 6 % (20-40); MONOCYTE 2 % (0-10); NEUTROPHIL 90 % (50-75); TOTAL CELLS COUNTED 100
[2018-09-08 09:33] LABS: ANISOCYTOSIS SLIGHT; PLATELET ESTIMATE NORMAL (NORMAL)
--- NOTE | 2018-09-08 13:19 | CP.PCM.PN ---
Subjective - Date & Time of Evaluation Date of Evaluation: 09/08/18 Time of Evaluation: 13:18 - Subjective Subjective: Pulmonary Follow up, Covering Dr Steawrt The patient was Seen/interviewed and examined by me at the bedside, Medical records reviewed and Management issues were discussed and formulated with the house staff. Events reviewed 53 years old active tobacco user M with PMHx HTN, asthma and h/o dvt unprovoked b/l in 2007 on xeralto Who came to ER for worsening SOB over last 3 days Admitted with Exacerbation Asthma-COPD overlap syndrome Clinically improving, but still jwith Bilateral wheezing Off BIPAP Afebrile Denies fever/chills, No chest pain Less shortness of breath, less cough Objective - Vital Signs/Intake and Output Vital Signs (last 24 hours): Temp Pulse Resp BP Pulse Ox 97.9 F 88 20 112/71 95 09/07/18 20:00 09/07/18 20:00 09/07/18 07:44 09/07/18 21:08 09/07/18 20:00 Intake and Output: 09/08/18 09/08/18 06:59 18:59 Intake Total 300 Output Total 700 Balance -400 - Medications Medications: Current Medications Albuterol Sulfate (Albuterol 0.042% Inhal Janeth (1.25mg/3ml) Ud) 1.25 mg INH RQ2 PRN PRN Reason: Wheezing Last Admin: 09/06/18 08:30 Dose: 1.25 mg Albuterol/Ipratropium (Duoneb 3 Mg/0.5 Mg (3 Ml) Ud) 3 ml INH RQ6 [facility] Last Admin: 09/08/18 13:13 Dose: 3 ml Aspirin (Aspirin Chewable) 81 mg PO DAILY [facility] Last Admin: 09/07/18 14:22 Dose: 81 mg Budesonide (Pulmicort Respules) 0.5 mg INH RQ12 [facility] Last Admin: 09/08/18 08:28 Dose: 0.5 mg Doxycycline Hyclate (Doryx) 100 mg PO Q12H [facility]; Protocol Last Admin: 09/08/18 05:38 Dose: 100 mg Moxifloxacin HCl (Avelox Iv 400mg/250ml Ns) 400 mg in 250 mls @ 167 mls/hr IVPB Q24H [facility]; Protocol Last Admin: 09/07/18 14:22 Dose: 167 mls/hr Lisinopril (Zestril) 10 mg PO DAILY [facility] Last Admin: 09/07/18 14:22 Dose: 10 mg Methylprednisolone (Solu-Medrol) 40 mg IV Q8H [facility] Last Admin: 09/08/18 05:39 Dose: 40 mg Montelukast Sodium (Singulair) 10 mg PO HS [facility] Last Admin: 09/07/18 21:02 Dose: 10 mg Pantoprazole Sodium (Protonix Susp) 40 mg PO 0600 [facility] Last Admin: 09/08/18 05:38 Dose: 40 mg Promethazine HCl (Phenergan Syrup) 12.5 mg PO Q6 PRN PRN Reason: Cough Last Admin: 09/08/18 01:45 Dose: 12.5 mg Rivaroxaban (Xarelto) 20 mg PO DAILY [facility] Last Admin: 09/07/18 14:22 Dose: 20 mg Rosuvastatin Calcium (Crestor) 5 mg PO [facility] Rosuvastatin Calcium (Crestor) 5 [address] [facility] Last Admin: 09/07/18 21:19 Dose: 5 mg Trazodone HCl (Desyrel) 50 [address] [facility] Last Admin: 09/07/18 21:02 Dose: 50 mg - Labs Labs: 09/08/18 06:28 09/08/18 06:20 - Constitutional Appears: Well - Head Exam Head Exam: ATRAUMATIC, NORMAL INSPECTION, NORMOCEPHALIC - Eye Exam Eye Exam: EOMI, Normal appearance, PERRL - ENT Exam ENT Exam: Mucous Membranes Moist, Normal Exam - Neck Exam Neck Exam: Full ROM, Normal Inspection. absent: Lymphadenopathy - Respiratory Exam Respiratory Exam: Decreased Breath Sounds, Rhonchi, Wheezes. absent: Chest Wall Tenderness, Clear to Ausculation Bilateral, Respiratory Distress, NORMAL BREATHING PATTERN - Cardiovascular Exam Cardiovascular Exam: REGULAR RHYTHM, RRR, +S1, +S2. absent: Bradycardia, Tachycardia, Irregular Rhythm, Murmur - GI/Abdominal Exam GI & Abdominal Exam: Soft, Normal Bowel Sounds. absent: Tenderness - Extremities Exam Extremities Exam: Full ROM, Normal Capillary Refill, Normal Inspection. absent: Joint Swelling, Pedal Edema - Back Exam Back Exam: NORMAL INSPECTION. absent: CVA tenderness (L), CVA tenderness (R) - Neurological Exam Neurological Exam: Alert, Awake, CN II-XII Intact, Normal Gait, Oriented x3 Assessment and Plan (1) Asthma-COPD overlap syndrome Status: Acute (2) Exacerbation of asthma Status: Acute (3) Tobacco abuse Status: Acute (4) History of DVT (deep vein thrombosis) Status: Acute - Assessment and Plan (Free Text) Assessment: Continue IV steroids Continue nebulizer treatment Patient requesting to be discharged since he has to go work tomorrow, However not stable from Pulmonary standpoint yet, Pt's current status is discussed with him and the need for further hospitalizations.
[2018-09-08] MEDS: Moxifloxacin IV 400mg/250ml NS 400 MG/250 ML BAG IVPB SCH (14:14)
--- NOTE | 2018-09-08 17:53 | CP.PCM.PN ---
Subjective - Date & Time of Evaluation Date of Evaluation: 09/08/18 Time of Evaluation: 13:45 - Subjective Subjective: clinically same Objective - Vital Signs/Intake and Output Vital Signs (last 24 hours): Temp Pulse Resp BP Pulse Ox 98.0 F 81 20 98/50 L 95 09/08/18 17:00 09/08/18 17:00 09/08/18 17:00 09/08/18 17:00 09/08/18 17:00 Intake and Output: 09/08/18 09/08/18 06:59 18:59 Intake Total 300 Output Total 700 Balance -400 - Medications Medications: Current Medications Albuterol Sulfate (Albuterol 0.042% Inhal Janeth (1.25mg/3ml) Ud) 1.25 mg INH RQ2 PRN PRN Reason: Wheezing Last Admin: 09/06/18 08:30 Dose: 1.25 mg Albuterol/Ipratropium (Duoneb 3 Mg/0.5 Mg (3 Ml) Ud) 3 ml INH RQ6 [facility] Last Admin: 09/08/18 13:13 Dose: 3 ml Aspirin (Aspirin Chewable) 81 mg PO DAILY [facility] Last Admin: 09/08/18 14:14 Dose: 81 mg Budesonide (Pulmicort Respules) 0.5 mg INH RQ12 [facility] Last Admin: 09/08/18 08:28 Dose: 0.5 mg Doxycycline Hyclate (Doryx) 100 mg PO Q12H [facility]; Protocol Last Admin: 09/08/18 05:38 Dose: 100 mg Moxifloxacin HCl (Avelox Iv 400mg/250ml Ns) 400 mg in 250 mls @ 167 mls/hr IVPB Q24H [facility]; Protocol Last Admin: 09/08/18 14:14 Dose: 167 mls/hr Lisinopril (Zestril) 10 mg PO DAILY [facility] Last Admin: 09/08/18 14:14 Dose: 10 mg Methylprednisolone (Solu-Medrol) 40 mg IV Q8H [facility] Last Admin: 09/08/18 14:16 Dose: 40 mg Montelukast Sodium (Singulair) 10 mg PO HS [facility] Last Admin: 09/07/18 21:02 Dose: 10 mg Pantoprazole Sodium (Protonix Susp) 40 mg PO 0600 [facility] Last Admin: 09/08/18 05:38 Dose: 40 mg Promethazine HCl (Phenergan Syrup) 12.5 mg PO Q6 PRN PRN Reason: Cough Last Admin: 09/08/18 14:14 Dose: 12.5 mg Rivaroxaban (Xarelto) 20 mg PO DAILY [facility] Last Admin: 09/08/18 14:14 Dose: 20 mg Rosuvastatin Calcium (Crestor) 5 mg PO DIN [facility] Rosuvastatin Calcium (Crestor) 5 mg PO HS [facility] Last Admin: 09/07/18 21:19 Dose: 5 mg Trazodone HCl (Desyrel) 50 mg PO HS [facility] Last Admin: 09/07/18 21:02 Dose: 50 mg - Labs Labs: 09/08/18 06:28 09/08/18 06:20 - Constitutional Appears: Well - Head Exam Head Exam: ATRAUMATIC, NORMAL INSPECTION, NORMOCEPHALIC - Eye Exam Eye Exam: EOMI, Normal appearance, PERRL Pupil Exam: NORMAL ACCOMODATION, PERRL - ENT Exam ENT Exam: Mucous Membranes Moist, Normal Exam - Neck Exam Neck Exam: Full ROM, Normal Inspection. absent: Lymphadenopathy - Respiratory Exam Respiratory Exam: Decreased Breath Sounds - Cardiovascular Exam Cardiovascular Exam: REGULAR RHYTHM, +S1, +S2 - GI/Abdominal Exam GI & Abdominal Exam: Soft, Diminished Bowel Sounds - Rectal Exam Rectal Exam: Deferred
[2018-09-08 22:44] VITALS: O2SAT 96
[2018-09-09] MEDS: Albuterol-Ipratrop 3 mg / 0.5 (3 ml) UD INH SCH (01:38)
[2018-09-09] MEDS: Promethazine 12.5 mg/10 ml Syrup PO PRN (05:02)
[2018-09-09] MEDS: MethylPREDNISolone 40 mg Vial IV SCH (05:02)
[2018-09-09] MEDS: Pantoprazole 40 mg Susp UD PO SCH (05:02)
[2018-09-09 05:47] LABS: BASO # 0.2 K/uL (0.0-0.2); BASO % 1.1 % (0.0-2.0); HEMOGLOBIN 13.8 g/dL (12.0-18.0); LYMPH # 0.7 K/uL (1.0-4.3); LYMPH % 3.2 % (20.0-40.0); MEAN CELL VOLUME 86.7 fL (80.0-94.0); MEAN CORPUSCULAR HEMOGLOBIN 28.5 pg (27.0-31.0); MEAN CORPUSCULAR HGB CONC 32.8 g/dL (33.0-37.0); MEAN PLATELET VOLUME 9.3 fL (7.2-11.7); MONO # 0.4 K/uL (0.0-0.8); MONO % 2.1 % (0.0-10.0); NEUT # 18.8 K/uL (1.8-7.0); NEUT % 93.6 % (50.0-75.0); PLATELET COUNT 224 K/uL (130-400); RBC 4.87 Mil/uL (4.40-5.90); RED CELL DISTRIBUTION WIDTH 13.8 % (11.5-14.5); WHITE BLOOD COUNT 20.1 K/uL (4.8-10.8)
[2018-09-09 06:05] VITALS: BP 115/75; PULSE 60; RESP 19
[2018-09-09 06:08] LABS: ALB/GLOB RATIO 1.3 (1.0-2.1); ALBUMIN 3.5 g/dL (3.5-5.0); ALT/SGPT 20 U/L (21-72); AST/SGOT 26 U/L (17-59); BLOOD UREA NITROGEN 21 mg/dL (9-20); CALCIUM 8.6 mg/dl (8.6-10.4); GFR NON-AFRICAN AMERICAN > 60
[2018-09-09 08:25] LABS: BANDS 1 % (0-2); LYMPHOCYTE 7 % (20-40); MONOCYTE 3 % (0-10); PLATELET ESTIMATE NORMAL (NORMAL); TOTAL CELLS COUNTED 100
[2018-09-09 08:26] LABS: NEUTROPHIL 89 % (50-75)
[2018-09-09 08:59] VITALS: TEMP 97.5
--- NOTE | 2018-09-09 16:47 | CP.PCM.PN ---
Subjective - Date & Time of Evaluation Date of Evaluation: 09/09/18 Time of Evaluation: 09:00 - Subjective Subjective: pt siged out ama aware of consequences pt is aaox3 pt adv to see md in 48 hours Objective - Vital Signs/Intake and Output Vital Signs (last 24 hours): Temp Pulse Resp BP Pulse Ox 97.5 F L 60 19 115/75 96 09/09/18 08:00 09/09/18 06:00 09/09/18 06:00 09/09/18 06:00 09/09/18 06:00 Intake and Output: 09/09/18 09/09/18 06:59 18:59 Intake Total 240 Output Total 1200 Balance -960 - Labs Labs: 09/09/18 05:37 09/09/18 05:37
== END 2018-09-09 08:45 | disposition left against medical advice (07) | DRG 96 ==
LOC: C.ER 04:12 → C.9I 05:17
PROVIDERS: ADMIT Internal Medicine Nephrology; ATTEND Internal Medicine Nephrology
DX: J45.902 Unspecified asthma with status asthmaticus (principal); M35.1 Other overlap syndromes; E87.2 Acidosis; J44.1 Chronic obstructive pulmonary disease with (acute) exacerbation; Z72.0 Tobacco use; Z86.718 Personal history of other venous thrombosis and embolism; I10 Essential (primary) hypertension; E78.5 Hyperlipidemia, unspecified